=== PATIENT | male | born 1980 | race Caucasian/White ===

== ENCOUNTER 2017-11-21 15:35 | Observation (INO) | payer MEDICAID ==
[~2017-11-21] VITALS: Ht 172.7 cm; Wt 91.0 kg
[2017-11-21 16:06] LABS: BASOPHILS # (AUTO) 0.02 x10^3/uL (0-0.1); BASOPHILS % (AUTO) 0 % (0-1); EOSINOPHILS # (AUTO) 0.16 x10^3/uL (0-0.4); EOSINOPHILS % (AUTO) 3 % (1-7); LYMPHOCYTES # (AUTO) 1.32 x10^3/uL (1-3.4); LYMPHOCYTES % (AUTO) 28 % (22-44); MD NO; MEAN CORPUSCULAR HEMOGLOBIN 32.7 pg (27.5-34.5); MEAN CORPUSCULAR HGB CONC 35.1 g/dL (33.2-36.2); MEAN CORPUSCULAR VOLUME 93.1 fL (81-97); MEAN PLATELET VOLUME 7.7 fL (7.4-10.4); MONOCYTES # (AUTO) 0.58 x10^3/uL (0.2-0.8); MONOCYTES % (AUTO) 12 % (2-9); NEUTROPHILS # (AUTO) 2.73 x10^3/uL (1.8-6.8); NEUTROPHILS % (AUTO) 57 % (42-75); PLATELET COUNT 153 x10^3/uL (130-400); RED BLOOD COUNT 4.69 x10^6/uL (4.38-5.82); RED CELL DISTRIBUTION WIDTH 13.3 % (9.4-14.8)
[2017-11-21] MEDS ORDERED: OMEP20TA62 PO (16:12)
[2017-11-21] MEDS ORDERED: Librium PO (16:12)
[2017-11-21] MEDS ORDERED: THIA100T27 PO (16:12)
[2017-11-21 16:14] LABS: ALBUMIN 3.6 g/dL (3.4-5.0); ANION GAP 11 mmol/L (5-15); CALCIUM 8.5 mg/dL (8.5-10.1); CHLORIDE 110 mmol/L (98-107)
[2017-11-21 16:19] LABS: ALANINE AMINOTRANSFERASE 77 U/L (12-78); ALKALINE PHOSPHATASE 91 U/L (45-117); BILIRUBIN,TOTAL 0.3 mg/dL (0.2-1.0); CREATININE 0.98 mg/dL (0.7-1.3)
[2017-11-21 16:21] LABS: ACETAMINOPHEN < 2 mcg/mL (10-30); SALICYLATE LEVEL < 1.7 mg/dL (2.8-20.0)
[2017-11-21 17:16] LABS: AMPHETAMINE SCREEN, URINE Negative (Negative); BARBITURATE SCREEN, URINE Positive (Negative); BENZODIAZEPINE SCREEN, URINE Positive (Negative); CANNABINOID SCREEN, URINE Negative (Negative); COCAINE SCREEN, URINE Negative (Negative); METHADONE SCREEN, URINE Negative (Negative); OPIATE SCREEN, URINE Negative (Negative)
[2017-11-22] MEDS ORDERED: CHLORDIAZEPOXIDE 25 MG CAPSULE PO STA (00:13)
[2017-11-22] MEDS ORDERED: QUETIAPINE 25MG TABLET PO PRN (01:00)
[2017-11-22] MEDS ORDERED: IBUPROFEN 600 MG TABLET PO PRN (01:00)
[2017-11-22] MEDS ORDERED: DOCUSATE 100 MG CAPSULE PO PRN (01:00)
[2017-11-22] MEDS ORDERED: ONDANSETRON ODT 4 MG PO PRN (01:00)
[2017-11-22] MEDS ORDERED: CHLORDIAZEPOXIDE 25 MG CAPSULE ONE (01:05)
[2017-11-22 01:51] VITALS: BP 159/104
[2017-11-22 08:00] VITALS: BP 119/77
[2017-11-22] MEDS ORDERED: OMEPRAZOLE 20 MG CAPSULE.DR PO SCH (09:00)
[2017-11-22] MEDS ORDERED: THIAMINE 100MG TABLET PO SCH (09:00)
[2017-11-22] MEDS ORDERED: CHLORDIAZEPOXIDE 25 MG CAPSULE PO SCH (11:00)
== END 2017-11-22 10:39 | disposition home or self-care (01) ==
LOC: ED 17:01 → EDIP 11-22 00:21 → 2NW 11-22 01:35 → 2N 11-22 01:50
PROVIDERS: ADMIT Internal Medicine; ATTEND Internal Medicine
DX: R45.851 Suicidal ideations (principal); F33.2 Major depressive disorder, recurrent severe without psychotic features; I10 Essential (primary) hypertension; F19.11 Other psychoactive substance abuse, in remission; F10.239 Alcohol dependence with withdrawal, unspecified; Z80.3 Family history of malignant neoplasm of breast; Z81.8 Family history of other mental and behavioral disorders; Z91.5 Personal history of self-harm
CPT/HCPCS: 36415; 80053; 80307; 80329; 85025; 99285; G0378; G0480

== ENCOUNTER 2019-01-21 14:25 | Emergency (ER) | payer SELFPAY ==
[~2019-01-21] VITALS: Ht 172.7 cm; Wt 94.1 kg
[~2019-01-21 14:25] MED LIST: CLON0.1T22 PO; DIVA500T2 PO; LEVO25TA2 PO; LOSA25TA2 PO; Librium PO; NALT50TA PO; OMEP20TA62 PO; THIA100T27 PO
[2019-01-21 15:21] LABS: BASOPHILS # (AUTO) 0.03 x10^3/uL (0-0.1); BASOPHILS % (AUTO) 1 % (0-1); EOSINOPHILS # (AUTO) 0.15 x10^3/uL (0-0.4); EOSINOPHILS % (AUTO) 2 % (1-7); LYMPHOCYTES # (AUTO) 2.31 x10^3/uL (1-3.4); LYMPHOCYTES % (AUTO) 38 % (22-44); MD NO; MEAN CORPUSCULAR HGB CONC 34.1 g/dL (33.2-36.2); MEAN CORPUSCULAR VOLUME 90.9 fL (81-97); MEAN PLATELET VOLUME 7.7 fL (7.4-10.4); MONOCYTES # (AUTO) 0.48 x10^3/uL (0.2-0.8); MONOCYTES % (AUTO) 8 % (2-9); NEUTROPHILS # (AUTO) 3.11 x10^3/uL (1.8-6.8); NEUTROPHILS % (AUTO) 51 % (42-75); PLATELET COUNT 274 x10^3/uL (130-400); RED BLOOD COUNT 5.64 x10^6/uL (4.38-5.82); RED CELL DISTRIBUTION WIDTH 13.1 % (9.4-14.8)
[2019-01-21 15:27] LABS: ANION GAP 11 mmol/L (5-15); CALCIUM 8.7 mg/dL (8.5-10.1); CHLORIDE 108 mmol/L (98-107); CREATININE 0.89 mg/dL (0.7-1.3)
[2019-01-21] MEDS ORDERED: CHLORDIAZEPOXIDE 25 MG CAPSULE ONE (15:28)
[2019-01-21] MEDS ORDERED: CHLORDIAZEPOXIDE 25 MG CAPSULE PO ONE (15:30)
[2019-01-21 16:14] VITALS: BP 136/91
== END 2019-01-21 16:17 | disposition home or self-care (01) ==
LOC: ED 16:10
DX: F10.129 Alcohol abuse with intoxication, unspecified (principal); I10 Essential (primary) hypertension; F32.9 Major depressive disorder, single episode, unspecified; Y90.8 Blood alcohol level of 240 mg/100 ml or more
CPT/HCPCS: 36415; 80048; 80307; 83735; 85025; 99283

== ENCOUNTER 2019-02-25 04:43 | Emergency (ER) | payer MEDICAID, OTHER ==
[~2019-02-25] VITALS: Ht 172.7 cm; Wt 93.5 kg
--- NOTE | 2019-02-25 05:30 | NUR ---
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 H/X ALCOHOL DEPENDENCY, BIPOLAR. C/O RLQ ABD PAIN WITH NAUSEA. PT IN SECURED ROOM AND ALL BELONGINGS REMOVED AND PLACED IN ONE BAG IN LOCKER. SITTER AT DOORWAY FOR FREQUENT CHECKS.
--- NOTE | 2019-02-25 05:33 | NUR ---
PT STATES HE IS SUPPOSED TO BE TAKING AND IS PERSCRIBED DEPIKOTE FOR BIPOLAR BUT HAS BEEN NON COMPLIANT WITH MEDS
--- NOTE | 2019-02-25 06:13 | NUR ---
PT PROVIDED ICE CHIPS PER PT REQUEST. PT INFORMED OF THE NEED FOR A URINE SAMPLE AND PROVIDED WITH BEDSIDE URINAL. PT VERBALIZED UNDERSTANDING AND STATES HE IS NOT ABLE TO URINATE AT THIS TIME BUT WILL TRY IN A FEW MINUTES.
[2019-02-25 06:23] LABS: BASOPHILS # (AUTO) 0.02 x10^3/uL (0-0.1); BASOPHILS % (AUTO) 0 % (0-1); EOSINOPHILS # (AUTO) 0.06 x10^3/uL (0-0.4); EOSINOPHILS % (AUTO) 1 % (1-7); LYMPHOCYTES # (AUTO) 1.79 x10^3/uL (1-3.4); LYMPHOCYTES % (AUTO) 28 % (22-44); MD NO; MEAN CORPUSCULAR HEMOGLOBIN 30.9 pg (27.5-34.5); MEAN CORPUSCULAR HGB CONC 33.2 g/dL (33.2-36.2); MEAN CORPUSCULAR VOLUME 93.1 fL (81-97); MEAN PLATELET VOLUME 7.8 fL (7.4-10.4); MONOCYTES # (AUTO) 0.66 x10^3/uL (0.2-0.8); MONOCYTES % (AUTO) 10 % (2-9); NEUTROPHILS # (AUTO) 3.98 x10^3/uL (1.8-6.8); NEUTROPHILS % (AUTO) 61 % (42-75); PLATELET COUNT 260 x10^3/uL (130-400); RED BLOOD COUNT 5.33 x10^6/uL (4.38-5.82); RED CELL DISTRIBUTION WIDTH 13.7 % (9.4-14.8)
[2019-02-25] MEDS ORDERED: LORazepam 0.5MG TABLET PO PRN (06:30)
[2019-02-25] MEDS ORDERED: LORazepam 1MG TABLET PO PRN ×3 (06:30)
--- NOTE | 2019-02-25 06:31 | NUR ---
PRN ATIVAN ORDERS REQUESTED FROM RESIDENT CHACE
[2019-02-25 06:36] LABS: CALCIUM 8.9 mg/dL (8.5-10.1); CHLORIDE 107 mmol/L (98-107)
[2019-02-25] MEDS ORDERED: LORazepam 1MG TABLET ONE ×3 (06:39→17:40)
[2019-02-25 06:41] LABS: ALANINE AMINOTRANSFERASE 96 U/L (12-78); ALBUMIN 4.4 g/dL (3.4-5.0); ALKALINE PHOSPHATASE 65 U/L (45-117); ANION GAP 11 mmol/L (5-15); BILIRUBIN,TOTAL 0.9 mg/dL (0.2-1.0); CREATININE 0.89 mg/dL (0.7-1.3); SALICYLATE LEVEL < 1.7 mg/dL (2.8-20.0); TOTAL PROTEIN 7.4 g/dL (6.4-8.2)
[2019-02-25 06:42] LABS: AMPHETAMINE SCREEN, URINE Negative (Negative); BARBITURATE SCREEN, URINE Negative (Negative); BENZODIAZEPINE SCREEN, URINE Negative (Negative); CANNABINOID SCREEN, URINE Positive (Negative); COCAINE SCREEN, URINE Negative (Negative); METHADONE SCREEN, URINE Negative (Negative); OPIATE SCREEN, URINE Negative (Negative)
--- NOTE | 2019-02-25 06:43 | NUR ---
CIWA PROTOCOL INITIATED. PO ATIVAN ADMINISTERED. CIWA OF 14 = 2MG ATIVAN
--- NOTE | 2019-02-25 07:15 | NUR ---
PT RESTING CALMLY IN BED, STATED IS FEELING BETTER AFTER FINISHER MACHINE BY SWETA SHIFT RN. RECEIVED REPORT FROM ERUM GRIFFIN. SITTER AT DOOR.
--- NOTE | 2019-02-25 08:18 | NUR ---
PT CONTINUES TO REST CALMLY IN BED. NO STATED NEEDS AT THIS TIME, PT RESTING ON BELLY, RESP EVEN AND NON LABORED. SITTER DOOR.
--- NOTE | 2019-02-25 09:17 | NUR ---
BREAK RN NOTE: SI MEAL TRAY ORDERED FOR PATIENT.
[2019-02-25] MEDS ORDERED: LORazepam 0.5MG TABLET ONE (10:23)
--- NOTE | 2019-02-25 10:53 | NUR ---
PT RESITNG CALMLY IN BED,. HAS FINISHED MEAL TRAY. PT MEDICATED PER EMAR PER CIWA SCALE FOR WITHDRAWL SYMPTOMS. PT FEELING MINIMALLY ANXIOUS, BP AND HR HIGH, SEE CHARTED. SITTER AT DOOR.
--- NOTE | 2019-02-25 11:31 | NUR ---
PT RESTING CALMLY IN BED, NO STATED COMPLAINT AT THIS TIME. SITTER AT DOOR.
--- NOTE | 2019-02-25 11:59 | NUR ---
[facility] CONTACTED FOR [employer]LE P[employer]ER [employer]ER
--- NOTE | 2019-02-25 12:20 | NUR ---
PT HAS LUNCH TRAY, SITTER AT DOOR. NO STATED COMPLAINTS AT THIS TIME.
--- NOTE | 2019-02-25 13:39 | NUR ---
PACKET FAXED TO [facility], [facility] AND [facility]
[2019-02-25 13:41] VITALS: BP 159/113
[2019-02-25] MEDS: LORazepam 1MG TABLET PO PRN ×2 (13:45→17:46)
--- NOTE | 2019-02-25 13:55 | NUR ---
PT C/O FEELING ANXIOUS AND HAVING INCREASED WITHDRAWL SYMPTOMS, SEE CIWA CHARTING. PT MEDICATED PER EMAR. WILL CONTINUE TO MONITOR.
--- NOTE | 2019-02-25 15:15 | NUR ---
REPORT TO ALLEN GRIFFIN FOR [facility].
[2019-02-25] MEDS ORDERED: ONDANSETRON ODT 4 MG ONE (17:40)
--- NOTE | 2019-02-25 17:50 | NUR ---
PT STATED HE IS FEELING AGITATED AGAIN. CIWA SCALE DONE, PT MEDICATED PER SCALE. PT HAS EATEN DINNER, SITTER AT DOOR. WILL CONTINUE TO MONITOR. PT C/O NAUSEA, ORDERS PLACED, PT MEDICATED.
[2019-02-25] MEDS ORDERED: ONDANSETRON ODT 4 MG PO ONE (18:00)
--- NOTE | 2019-02-25 18:15 | NUR ---
PT LEAVING WITH REM[facility]. BAG OF BELONGINGS GIVEN TO [facility]. PT ABLE TO AMBULATE STEADILY.
== END 2019-02-25 18:14 ==
LOC: ED 05:57
DX: F10.221 Alcohol dependence with intoxication delirium (principal); R45.851 Suicidal ideations; Y90.9 Presence of alcohol in blood, level not specified
CPT/HCPCS: 36415; 80053; 80307; 85025; 99285; Q0162

== ENCOUNTER 2019-04-10 22:25 | Emergency (ER) | payer MEDICAID ==
[~2019-04-10] VITALS: Ht 172.7 cm; Wt 94.8 kg
[2019-04-10 22:30] VITALS: BP 163/113
--- NOTE | 2019-04-10 22:50 | NUR ---
ERP at bedside.
[2019-04-10] MEDS ORDERED: PROP10TA16 PO (23:07)
--- NOTE | 2019-04-10 23:31 | NUR ---
TASK RN: DC EDUCATION PROVIDED, PT DEMONSTRATES UNDERSTANDING. PT REPORTS WANTING TO DETOX AT [facility]. TAXI VOUCHER PROVIDED FOR SAFE TRANSPORT TO [facility].
== END 2019-04-10 23:34 | disposition home or self-care (01) ==
LOC: ED 23:01
DX: F10.120 Alcohol abuse with intoxication, uncomplicated (principal); F12.10 Cannabis abuse, uncomplicated; Z72.9 Problem related to lifestyle, unspecified; I10 Essential (primary) hypertension; Z87.891 Personal history of nicotine dependence; Y90.0 Blood alcohol level of less than 20 mg/100 ml
CPT/HCPCS: 99281

== ENCOUNTER 2019-12-30 08:56 | Emergency (ER) | payer MEDICAID ==
[~2019-12-30] VITALS: Ht 172.7 cm; Wt 93.8 kg
[~2019-12-30 08:56] MED LIST changes: +PROP10TA16 PO
--- NOTE | 2019-12-30 09:17 | NUR ---
PT PRESENTS TO ED SEEKING HELP WITH ETOH WITHDRAWAL. PT STATES HE HAS BEEN IN AND OUT OF ETOH DEPENDENCE FOR YEARS, STATES HE HAD ABSTAINED FOR "A WHILE" BUT RECENTLY RELAPSED, DRINKING 5 "[employer]" DAILY. LAST DRINK 0400 THIS AM, STATES HE HAS BEEN VOMITING SINCE LAST NIGHT. PT IS A&OX4, CALM AND COOPERATIVE. BP AND SPO2 MONITORS IN PLACE ,PT HAS HX HTN BUT HAS BEEN NON-COMPLIANT WITH HIS PRESCRIPTION ANTIHYPERTENSIVE. PT DECLINES BLANKET, CALL LIGHT IN REACH. AWAITING PROVIDER AND ORDERS AT THIS TIME.
[2019-12-30] MEDS ORDERED: ONDANSETRON 2MG/ML, 2ML ONE (09:23)
[2019-12-30] MEDS ORDERED: FAMOTIDINE 20 MG/2 ML ONE (09:23)
[2019-12-30] MEDS ORDERED: ONDANSETRON 2MG/ML, 2ML IVPush ONE (09:30)
[2019-12-30] MEDS ORDERED: SODIUM CHLORIDE 0.9% 1,000ML IVBOLUS ONE (09:30)
[2019-12-30] MEDS ORDERED: FAMOTIDINE 20 MG/2 ML IV ONE (09:30)
[2019-12-30 09:57] LABS: BASOPHILS % (AUTO) 0 % (0-1); EOSINOPHILS % (AUTO) 0 % (1-7); LYMPHOCYTES % (AUTO) 12 % (22-44); MEAN CORPUSCULAR HEMOGLOBIN 29.8 pg (27.5-34.5); MEAN CORPUSCULAR HGB CONC 33.7 g/dL (33.2-36.2); MEAN PLATELET VOLUME 8.6 fL (7.4-10.4); MONOCYTES % (AUTO) 12 % (2-9); NEUTROPHILS % (AUTO) 76 % (42-75); PLATELET COUNT 317 x10^3/uL (130-400); RED BLOOD COUNT 5.55 x10^6/uL (4.38-5.82); RED CELL DISTRIBUTION WIDTH 13.5 % (9.4-14.8)
--- NOTE | 2019-12-30 09:57 | NUR ---
PIV PLACED, PT MEDICATED PER EMAR, TOLERATED WELL. PT A&O, RESPS EVEN AND UNLABORED, NSR ON MARZIPAN MAKER WITH NO ECTOPY. CALL LIGHT IN REACH. US AT BEDSIDE AT THIS TIME.
[2019-12-30 10:02] LABS: ALANINE AMINOTRANSFERASE 23 U/L (12-78); ALBUMIN 4.6 g/dL (3.4-5.0); ANION GAP 8 mmol/L (5-15); CALCIUM 9.4 mg/dL (8.5-10.1); CHLORIDE 107 mmol/L (98-107)
[2019-12-30 10:05] LABS: ALKALINE PHOSPHATASE 78 U/L (45-117); BILIRUBIN,TOTAL 1.2 mg/dL (0.2-1.0); CREATININE 1.08 mg/dL (0.7-1.3); MD NO; TOTAL PROTEIN 7.9 g/dL (6.4-8.2)
[2019-12-30 10:39] VITALS: BP 148/91
== END 2019-12-30 10:41 | disposition home or self-care (01) ==
LOC: ED 09:47
DX: K29.20 Alcoholic gastritis without bleeding (principal); F10.239 Alcohol dependence with withdrawal, unspecified; R11.2 Nausea with vomiting, unspecified; I10 Essential (primary) hypertension; I21.9 Acute myocardial infarction, unspecified; Z91.19 Patient's noncompliance with other medical treatment and regimen; Y90.9 Presence of alcohol in blood, level not specified
CPT/HCPCS: 36415; 76700; 80053; 80307; 83690; 85025; 93005; 96361; 96374; 96375; 99285; J2405; J7030

== ENCOUNTER 2020-10-22 22:03 | Emergency (ER) | payer MEDICAID ==
[~2020-10-22] VITALS: Ht 172.7 cm; Wt 98.0 kg
[2020-10-22] MEDS ORDERED: ONDANSETRON 2MG/ML, 2ML ONE (22:26)
[2020-10-22] MEDS ORDERED: LORazepam 2 MG/ML, 1ML ONE ×2 (22:26→23:45)
[2020-10-22] MEDS: LORazepam 2 MG/ML, 1ML IVPush PRN ×2 (22:29→23:54)
[2020-10-22] MEDS ORDERED: MAGNESIUM SULFATE 1 GM, THIAMINE 100 MG, FOLIC ACID 1 MG, MVI ADULT 10 ML in SODIUM CHL... IV ONE (22:30)
[2020-10-22] MEDS ORDERED: SODIUM CHLORIDE FLUSH 10ML SYR IVF ONE (22:30)
[2020-10-22] MEDS ORDERED: SODIUM CHLORIDE 0.9% 1,000ML IVBOLUS ONE (22:30)
[2020-10-22] MEDS ORDERED: ONDANSETRON 2MG/ML, 2ML IVPush ONE (22:30)
[2020-10-22 22:48] LABS: BASOPHILS % (AUTO) 1 % (0-1); EOSINOPHILS % (AUTO) 0 % (1-7); LYMPHOCYTES % (AUTO) 21 % (22-44); MEAN CORPUSCULAR HEMOGLOBIN 30.4 pg (27.5-34.5); MEAN CORPUSCULAR HGB CONC 34.6 g/dL (33.2-36.2); MEAN PLATELET VOLUME 7.8 fL (7.4-10.4); MONOCYTES % (AUTO) 12 % (2-9); NEUTROPHILS % (AUTO) 66 % (42-75); PLATELET COUNT 527 x10^3/uL (130-400); RED BLOOD COUNT 5.89 x10^6/uL (4.38-5.82); RED CELL DISTRIBUTION WIDTH 13.3 % (9.4-14.8)
[2020-10-22 22:59] LABS: ALBUMIN 4.6 g/dL (3.4-5.0); ANION GAP 16 mmol/L (5-15); CALCIUM 10.3 mg/dL (8.5-10.1); CHLORIDE 98 mmol/L (98-107)
[2020-10-22 23:03] LABS: ALANINE AMINOTRANSFERASE 36 U/L (12-78); ALKALINE PHOSPHATASE 79 U/L (45-117); BILIRUBIN,TOTAL 0.9 mg/dL (0.2-1.0); CREATININE 1.28 mg/dL (0.7-1.3); TOTAL PROTEIN 8.8 g/dL (6.4-8.2)
--- NOTE | 2020-10-22 23:58 | NUR ---
PT STATES FEELING LITTLE BETTER, GIVEN ADDITIONAL ATIVAN. WILL CTM.
--- NOTE | 2020-10-23 01:37 | NUR ---
BREAK RN: Patient is resting comfortably in bed. Bed in lowest, rails engaged, call light on lap. PT IS SLIGHTLY TACHYCARDIC ON THE MONITOR. NAD, DENIES ADDITIONAL QUESTIONS OR NEEDS, URINAL EMPTIED. EVEN AND UNLABORED RESPIRATIONS NOTED. WCTM.
--- NOTE | 2020-10-23 02:52 | NUR ---
pt sleeping. vss. will ctm.
[2020-10-23 03:15] VITALS: BP 146/96
[2020-10-23] MEDS ORDERED: LORazepam 2 MG/ML, 1ML ONE (03:18)
[2020-10-23] MEDS: LORazepam 2 MG/ML, 1ML IVPush PRN (03:23)
== END 2020-10-23 03:31 | disposition home or self-care (01) ==
LOC: ED 10-23 00:18
DX: K29.20 Alcoholic gastritis without bleeding (principal); Z20.822 Contact with and (suspected) exposure to COVID-19; F10.139 Alcohol abuse with withdrawal, unspecified; R00.0 Tachycardia, unspecified; Y90.0 Blood alcohol level of less than 20 mg/100 ml
CPT/HCPCS: 36415; 71045; 80053; 80320; 83690; 85025; 93005; 96361; 96365; 96375; 96376; 99285; J2060; J2405; J3411; J3475; J7030; U0003; U0005; G0480

== ENCOUNTER 2020-11-11 21:05 | Emergency (ER) | payer MEDICAID ==
[~2020-11-11] VITALS: Ht 172.7 cm; Wt 98.1 kg
[2020-11-11] MEDS ORDERED: SODIUM CHLORIDE 0.9% 1,000ML IVBOLUS ONE (21:30)
[2020-11-11] MEDS ORDERED: SODIUM CHLORIDE FLUSH 10ML SYR IVF ONE (21:30)
[2020-11-11] MEDS ORDERED: ONDANSETRON 2MG/ML, 2ML IVPush ONE (21:30)
[2020-11-11 21:39] LABS: BASOPHILS % (AUTO) 1 % (0-1); EOSINOPHILS % (AUTO) 0 % (1-7); LYMPHOCYTES % (AUTO) 18 % (22-44); MEAN CORPUSCULAR HEMOGLOBIN 30.9 pg (27.5-34.5); MEAN CORPUSCULAR HGB CONC 34.5 g/dL (33.2-36.2); MEAN PLATELET VOLUME 8.2 fL (7.4-10.4); MONOCYTES % (AUTO) 9 % (2-9); NEUTROPHILS % (AUTO) 73 % (42-75); PLATELET COUNT 405 x10^3/uL (130-400); RED CELL DISTRIBUTION WIDTH 13.4 % (9.4-14.8)
[2020-11-11 21:50] LABS: ALANINE AMINOTRANSFERASE 35 U/L (12-78); ALBUMIN 4.6 g/dL (3.4-5.0); ANION GAP 15 mmol/L (5-15); CHLORIDE 104 mmol/L (98-107); CREATININE 1.13 mg/dL (0.7-1.3)
[2020-11-11 21:53] LABS: ALKALINE PHOSPHATASE 66 U/L (45-117); BILIRUBIN,TOTAL 0.7 mg/dL (0.2-1.0); TOTAL PROTEIN 8.7 g/dL (6.4-8.2)
--- NOTE | 2020-11-11 22:36 | NUR ---
Pt to room from lobby at this time.
--- NOTE | 2020-11-11 22:55 | NUR ---
REPORT TO TAMIKO GRIFFIN.
[2020-11-11] MEDS ORDERED: ONDANSETRON 2MG/ML, 2ML ONE (23:00)
[2020-11-11] MEDS ORDERED: LORazepam 2 MG/ML, 1ML ONE (23:01)
[2020-11-11] MEDS ORDERED: THIAMINE 100MG TABLET ONE (23:03)
[2020-11-11] MEDS: LORazepam 2 MG/ML, 1ML IVPush PRN ×2 (23:13→23:29)
--- NOTE | 2020-11-11 23:29 | NUR ---
PT MEDICATED W/ ADDITIONAL 1MG IV ATIVAN. TOTAL OF 2MG IV ATIVAN GIVEN. CIWA SCORE OF 19
[2020-11-12 00:28] VITALS: BP 137/75
--- NOTE | 2020-11-12 00:55 | NUR ---
Patient/Caregiver given discharge instructions and they have confirmed that they understand the instructions. Patient ambulatory with steady gait. NAD, all questions answered appropriately, denies additional needs at this time. No personal belongings left in room after discharge.
[2020-11-12] MEDS ORDERED: THIAMINE 100MG TABLET PO SCH (09:00)
== END 2020-11-12 00:56 | disposition home or self-care (01) ==
LOC: ED 22:59
DX: K29.20 Alcoholic gastritis without bleeding (principal); F10.139 Alcohol abuse with withdrawal, unspecified; R11.2 Nausea with vomiting, unspecified; R10.9 Unspecified abdominal pain; I10 Essential (primary) hypertension; Z87.891 Personal history of nicotine dependence; Y90.0 Blood alcohol level of less than 20 mg/100 ml
CPT/HCPCS: 36415; 80053; 80320; 83690; 85025; 96361; 96374; 96375; 99284; J2060; J2405; J7030; G0480

== ENCOUNTER 2020-11-26 19:55 | Emergency (ER) | payer MEDICAID ==
[~2020-11-26] VITALS: Ht 172.7 cm; Wt 100.2 kg
[2020-11-26 21:50] VITALS: BP 167/107
== END 2020-11-26 22:12 | disposition home or self-care (01) ==
LOC: ED 21:33
DX: F10.239 Alcohol dependence with withdrawal, unspecified (principal); R94.31 Abnormal electrocardiogram [ECG] [EKG]; R11.2 Nausea with vomiting, unspecified; Z87.891 Personal history of nicotine dependence; Y90.0 Blood alcohol level of less than 20 mg/100 ml
CPT/HCPCS: 36415; 80048; 80320; 82040; 83690; 83735; 85025; 93005; 96361; 96374; 96375; 99284; J2060; J2405; J7030